=== PATIENT | male | born 1955 | race Caucasian/White ===

== ENCOUNTER → 2020-11-30 | Day surgery (SDC) | payer OTHER ==
[~2020-11-30] MED LIST: HYDROCODON-ACE1 EAC7 PO; ISOSORBIDE DINI20 M2 PO; LEVO-T25 MCG PO; LIPITOR40 MG PO; MORPHINE 1100 MG/101 SUBQ; NORCO 5-325 TA1 EACH PO; PAXIL40 MG PO; PENTASA500 MG PO; PERCOCET 5-3251 EACH PO; REGLAN 10 MG TA10 MG PO
--- NOTE | ~2020-11-30 | OP ---
[facility] [address] [place] [address] OPERATIVE REPORT Name: JOSELIN MURPHY Room: [facility]#: [id number] Admission: 11/30/20 Attend Phys: Alexy Boone Discharge: Date of : 53 Report #: [id number] THIS REPORT FOR: cc: Aimee Mena MD, Kandice L. MD ~ Alexy Boone MD DATE OF SERVICE: 11/30/2020 PREOPERATIVE DIAGNOSIS: Short gut syndrome. POSTOPERATIVE DIAGNOSIS: Short gut syndrome. OPERATIONS: 1. Removal of tunneled central venous catheter without subcutaneous port. 2. Insertion of tunneled central venous catheter with subcutaneous port. 3. Fluoroscopic interpretation for Port-A-Cath placement. 4. Ultrasound guidance for Port-A-Cath placement. SURGEON: Alexy Boone MD ANESTHESIA: General. ESTIMATED BLOOD LOSS: Minimal. SPECIMEN: None. DESCRIPTION OF PROCEDURE: After informed consent was obtained, the patient was brought to the operating room and placed supine. SCDs were placed and working, preoperative antibiotics were administered, general anesthesia was induced. This was LMA anesthesia. The left neck was prepped and draped in the usual sterile fashion. He had a central venous catheter in the left chest. This was without a subcutaneous port, but it did have an internal cuff. Counter incision was made over the internal cuff and the cuff was freed up with cautery and the catheter slid out easily. I then directed my attention to the left neck. The left internal jugular vein was identified. This was done with ultrasound. It was widely patent. It was normal in size. There was no thrombus. It was cannulated under direct vision. Pictures were taken and documented and placed in the chart. A wire was placed. Confirmation of the wire in the superior vena cava was [place] [address] OPERATIVE REPORT Name: JEFFREYJOSELIN K Room: [facility]#: [id number] Admission: 11/30/20 Attend Phys: Alexy Boone Discharge: Date of : 53 Report #: [id number] A pocket was made in the left chest. A tunneling device was tunneled from the left chest to the neck insertion site. Dilator with sheath was placed over the wire. The sheath was removed as the catheter was placed through the sheath. Again, confirmation of the catheter in the superior vena cava was confirmed with fluoroscopy. The catheter was then tunneled to the left chest pocket. It was trimmed at approximately 30 cm. It was connected to the reservoir. It flushed and arpita easily. The final placement was confirmed with fluoroscopy. The skin was then closed with 4-0 Monocryl. Incisions were dressed with Steri-Strips and sterile gauze. Sterile dressings were applied. COMPLICATIONS: None. DISPOSITION: The patient was taken to recovery in satisfactory condition. By: [id number] Boone MD /benny
[2020-11-30 07:20] LABS: HEMOGLOBIN 11.1 gm/dL (14.0-18.0); MCH 31.4 pg (26.0-34.0); MCHC 32.8 g/dL (28.0-37.0); MCV 95.7 fL (80.0-100.0); MPV 8.5 fl. (7.2-11.1); RBC 3.55 mil/uL (4.50-6.00); RDW-CV 14.3 % (10.5-14.5); WBC 7.4 thou/uL (4.0-11.0)
[2020-11-30 07:26] LABS: CALCIUM 8.3 mg/dL (8.5-10.1); CREATININE 0.9 mg/dL (0.6-1.3)
--- NOTE | 2020-11-30 10:36 | EKG ---
[place] [address] ELECTROCARDIOGRAM REPORT Name: JOSELIN MURPHY Room: [facility]#: [id number] Admission: 11/30/20 Attend Phys: Alexy Siegel Discharge: Date of : 53 Date of Service: 11/30/2038 Report #: [id number] THIS REPORT FOR: //name// [facility] Test Date: 2020-11-30 Test Time: 07:38:58 Pat Name: JOSELIN MURPHY Department: Room: Gender: Museum Curator: [facility] : 1955 Requested By: Alexy Boone Order Number: [id number] Roge MD: Mendoza Jules Measurements Intervals [place] Rate: 99 P: 27 PA: 143 QRS: -9 QRSD: 135 T: 0 QT: 419 QTc: 538 Interpretive Statements Sinus rhythm Right bundle branch block No previous ECG available for comparison Electronically Signed On 11-30-2020 10:35:48 BIOCHEMICAL DEVELOPMENT ENGINEER by Mendoza Jules [email or web address] <ELECTRONICALLY SIGNED> By: Mendoza Jules MD, [facility] 11/30/20 1035 7 7 Mendoza Jules MD, [facility] /EPI
== END | disposition home or self-care (01) ==
LOC: M.SUR 06:10
PROVIDERS: ATTEND Surgery
DX: Z45.2 Encounter for adjustment and management of vascular access device (principal); K91.2 Postsurgical malabsorption, not elsewhere classified; K50.90 Crohn's disease, unspecified, without complications; Z98.890 Other specified postprocedural states; Z79.899 Other long term (current) drug therapy; Z20.822 Contact with and (suspected) exposure to COVID-19; Z90.49 Acquired absence of other specified parts of digestive tract; Z88.8 Allergy status to other drugs, medicaments and biological substances